=== PATIENT | male | born 1980 | race Two or more races ===

== ENCOUNTER 2018-05-18 22:12 | Inpatient (IN) | payer OTHER ==
[~2018-05-18] VITALS: Ht 170.2 cm; Wt 114.4 kg
[2018-05-18] MEDS ORDERED: PANTOPRAZOLE 80 MG in SODIUM CHLORIDE 0.9% 100 ML IV SCH (22:58)
[2018-05-18] MEDS ORDERED: SODIUM CHLORIDE FLUSH 10ML SYR IVF ONE (23:00)
[2018-05-18] MEDS ORDERED: SODIUM CHLORIDE 0.9% 1,000ML IVBOLUS ONE (23:00)
[2018-05-18] MEDS ORDERED: PANTOPRAZOLE 40 MG IV IVPush ONE (23:00)
[2018-05-18] MEDS ORDERED: PANTOPRAZOLE 40 MG IV ONE (23:06)
[2018-05-18 23:22] LABS: BASOPHILS # (AUTO) 0.08 x10^3/uL (0-0.1); BASOPHILS % (AUTO) 1 % (0-1); EOSINOPHILS # (AUTO) 0.06 x10^3/uL (0-0.4); EOSINOPHILS % (AUTO) 1 % (1-7); LYMPHOCYTES # (AUTO) 1.83 x10^3/uL (1-3.4); LYMPHOCYTES % (AUTO) 14 % (22-44); MD NO; MEAN CORPUSCULAR HEMOGLOBIN 32.1 pg (27.5-34.5); MEAN CORPUSCULAR HGB CONC 34.4 g/dL (33.2-36.2); MEAN CORPUSCULAR VOLUME 93.3 fL (81-97); MEAN PLATELET VOLUME 7.7 fL (7.4-10.4); MONOCYTES % (AUTO) 6 % (2-9); NEUTROPHILS % (AUTO) 79 % (42-75); PLATELET COUNT 338 x10^3/uL (130-400); RED BLOOD COUNT 4.77 x10^6/uL (4.38-5.82); RED CELL DISTRIBUTION WIDTH 11.8 % (9.4-14.8)
[2018-05-18 23:31] LABS: ALANINE AMINOTRANSFERASE 108 U/L (12-78); ALBUMIN 3.8 g/dL (3.4-5.0); ANION GAP 8 mmol/L (5-15); CALCIUM 8.8 mg/dL (8.5-10.1); CHLORIDE 105 mmol/L (98-107); CREATININE 0.97 mg/dL (0.7-1.3)
[2018-05-18 23:34] LABS: ALKALINE PHOSPHATASE 145 U/L (45-117); BILIRUBIN,TOTAL 0.6 mg/dL (0.2-1.0); TOTAL PROTEIN 8.2 g/dL (6.4-8.2)
[2018-05-18 23:46] LABS: INTERNATIONAL NORMALIZED RATIO 0.98 (0.93-1.1); PROTHROMBIN TIME 10.2 Seconds (9.6-11.5)
[2018-05-19] MEDS ORDERED: PROPOFOL 10 MG/ML, 20ML IVPush ONE (00:30)
[2018-05-19] MEDS: PANTOPRAZOLE 80 MG in SODIUM CHLORIDE 0.9% 100 ML IV SCH ×3 (00:52→23:23)
[2018-05-19] MEDS ORDERED: OXYcodone IR 5MG TABLET PO PRN (01:00)
[2018-05-19] MEDS ORDERED: LABETALOL 5MG/ML, 20ML IVPush PRN (01:00)
[2018-05-19] MEDS ORDERED: POLYETHYLENE GLYCOL 17 GM PACKET PO PRN (01:00)
[2018-05-19] MEDS ORDERED: BACLOFEN 10 MG TABLET PO PRN (01:00)
[2018-05-19] MEDS ORDERED: LORazepam 1MG TABLET PO PRN ×4 (01:00)
[2018-05-19] MEDS ORDERED: LORazepam 0.5MG TABLET PO PRN (01:00)
[2018-05-19] MEDS ORDERED: morphine SULFATE 10 MG/ML, 1ML IVPush PRN (01:00)
[2018-05-19] MEDS ORDERED: GABAPENTIN 300 MG CAPSULE PO PRN (01:00)
[2018-05-19] MEDS ORDERED: hydrALAzine 20 MG/ML, 1ML IVPush PRN (01:00)
[2018-05-19] MEDS ORDERED: BISACODYL 10 MG SUPP PR PRN (01:00)
[2018-05-19] MEDS ORDERED: ONDANSETRON ODT 4 MG PO PRN (01:00)
[2018-05-19] MEDS ORDERED: PANTOPRAZOLE 80 MG in SODIUM CHLORIDE 0.9% 50 ML IV ONE (01:00)
[2018-05-19] MEDS ORDERED: PROMETHAZINE 25 MG/ML, 1ML IM PRN (01:00)
[2018-05-19] MEDS ORDERED: LORazepam 2 MG/ML, 1ML IV PRN ×5 (01:00)
[2018-05-19] MEDS ORDERED: DOCUSATE 100 MG CAPSULE PO PRN (01:00)
[2018-05-19] MEDS ORDERED: ONDANSETRON 2MG/ML, 2ML IVPush PRN (01:00)
[2018-05-19 01:26] VITALS: BP 146/89
[2018-05-19 01:32] LABS: FREE T4 (FREE THYROXINE) 0.78 ng/dL (0.76-1.46); THYROID STIMULATING HORMONE 0.997 mIU/L (0.358-3.740)
[2018-05-19] MEDS: D5%-0.9% NACL+KCL 20MEQ 1,000 ML IV SCH ×2 (01:47→10:49)
[2018-05-19 07:30] VITALS: BP 144/79
[2018-05-19] MEDS ORDERED: PROPOFOL 10 MG/ML, 20ML ONE (08:59)
[2018-05-19] MEDS ORDERED: CLARITHROMYCIN 500 MG TABLET PO SCH (09:00)
[2018-05-19] MEDS ORDERED: AMOXICILLIN 500 MG CAPSULE PO SCH (09:00)
[2018-05-19] MEDS ORDERED: OXYcodone 5 MG/5 ML ORAL.SOL UDC PO PRN (09:30)
[2018-05-19] MEDS ORDERED: ONDANSETRON 2MG/ML, 2ML IV PRN (09:30)
[2018-05-19] MEDS ORDERED: ONDANSETRON ODT 8 MG PO PRN (09:30)
[2018-05-19] MEDS ORDERED: PROMETHAZINE 25 MG/ML, 1ML IV PRN (09:30)
[2018-05-19] MEDS ORDERED: FENTANYL PF 100 MCG/2ML IV PRN (09:30)
[2018-05-19] MEDS ORDERED: ACETAMINOPHEN 325 MG TABLET PO PRN (09:30)
[2018-05-19] MEDS: THIAMINE 100MG TABLET PO SCH (10:49)
[2018-05-19] MEDS: MULTIVITAMIN 1 TABLET PO SCH (10:49)
[2018-05-19 13:33] VITALS: BP 125/77
[2018-05-19 19:16] VITALS: BP 129/79
[2018-05-19 21:10] LABS: MICROSCOPIC NOT IND
[2018-05-19 21:17] LABS: CULTURE INDICATED? NO
[2018-05-20 01:36] VITALS: BP 126/76
[2018-05-20 06:08] LABS: BASOPHILS # (AUTO) 0.06 x10^3/uL (0-0.1); BASOPHILS % (AUTO) 1 % (0-1); EOSINOPHILS # (AUTO) 0.08 x10^3/uL (0-0.4); EOSINOPHILS % (AUTO) 1 % (1-7); LYMPHOCYTES # (AUTO) 1.34 x10^3/uL (1-3.4); LYMPHOCYTES % (AUTO) 21 % (22-44); MD NO; MEAN CORPUSCULAR HGB CONC 34.2 g/dL (33.2-36.2); MEAN CORPUSCULAR VOLUME 93.4 fL (81-97); MEAN PLATELET VOLUME 7.8 fL (7.4-10.4); MONOCYTES # (AUTO) 0.48 x10^3/uL (0.2-0.8); MONOCYTES % (AUTO) 7 % (2-9); NEUTROPHILS % (AUTO) 70 % (42-75); PLATELET COUNT 239 x10^3/uL (130-400); RED BLOOD COUNT 3.86 x10^6/uL (4.38-5.82); RED CELL DISTRIBUTION WIDTH 11.9 % (9.4-14.8)
[2018-05-20 06:12] LABS: ALBUMIN 3.3 g/dL (3.4-5.0); ANION GAP 7 mmol/L (5-15); CALCIUM 8.5 mg/dL (8.5-10.1); CHLORIDE 104 mmol/L (98-107)
[2018-05-20 06:17] LABS: ALANINE AMINOTRANSFERASE 72 U/L (12-78); ALKALINE PHOSPHATASE 121 U/L (45-117); BILIRUBIN,TOTAL 0.6 mg/dL (0.2-1.0); CHOL/HDL RATIO 3.5; CHOLESTEROL, TOTAL 190 mg/dL (140-239); CREATININE 0.94 mg/dL (0.7-1.3); HDL CHOL % 29 % (26-37); HDL CHOLESTEROL (DIRECT) 55 mg/dL (40-60); LDL CHOLESTEROL,CALCULATED 113 mg/dL (54-169); LDL/HDL RATIO 2.1 (0.5-3.0); TRIGLYCERIDES 109 mg/dL (50-200); VLDL CHOLESTEROL 22 mg/dL (0-25)
[2018-05-20 07:31] VITALS: BP 113/72
[2018-05-20] MEDS ORDERED: CLARITHROMYCIN 500 MG TABLET PO SCH (09:00)
[2018-05-20] MEDS ORDERED: AMOXICILLIN 500 MG CAPSULE PO SCH (09:00)
[2018-05-20] MEDS: THIAMINE 100MG TABLET PO SCH (10:25)
[2018-05-20] MEDS: PANTOPRAZOLE 80 MG in SODIUM CHLORIDE 0.9% 100 ML IV SCH (10:25)
[2018-05-20] MEDS: MULTIVITAMIN 1 TABLET PO SCH (10:25)
[2018-05-20 13:52] VITALS: BP 115/72
[2018-05-20] MEDS ORDERED: AMOX-291 PO (14:38)
[2018-05-20] MEDS ORDERED: FOLI-17 PO (14:38)
[2018-05-20] MEDS ORDERED: MAGN400T26 PO (14:38)
[2018-05-20] MEDS ORDERED: THIA100T67 PO (14:38)
[2018-05-20] MEDS ORDERED: MULT1TAB60 PO (14:38)
[2018-05-20] MEDS ORDERED: PANT40TA3 PO (14:48)
[2018-05-20] MEDS ORDERED: SUCR1TAB33 PO ×2 (14:48→17:25)
[2018-05-20] MEDS ORDERED: SIMV40TA PO (15:03)
[2018-05-20] MEDS ORDERED: CLAR500T PO (15:04)
== END 2018-05-20 16:19 | disposition home or self-care (01) | DRG 369 ==
LOC: ED 22:51 → EDIP 05-19 00:23 → 3NE 05-19 01:25
PROVIDERS: ADMIT Internal Medicine; ATTEND Internal Medicine
PROC: 0DB68ZX Excision of Stomach, Via Natural or Artificial Opening Endoscopic, Diagnostic (ICD-10-PCS; principal; 2018-05-19 09:00)
DX: K22.6 Gastro-esophageal laceration-hemorrhage syndrome (principal); D62 Acute posthemorrhagic anemia; B96.81 Helicobacter pylori [H. pylori] as the cause of diseases classified elsewhere; F10.20 Alcohol dependence, uncomplicated; K20.9 Esophagitis, unspecified; K25.4 Chronic or unspecified gastric ulcer with hemorrhage; K29.71 Gastritis, unspecified, with bleeding; K70.10 Alcoholic hepatitis without ascites
CPT/HCPCS: 36415; 80053; 80061; 80307; 81003; 83036; 83690; 83735; 84439; 84443; 85014; 85018; 85025; 85610; 85730; 86677; 86850; 86900; 88305; 96374; G0378; J2704; C9113; J3480; J7030